=== PATIENT | male | born 1990 | race Caucasian/White ===

== ENCOUNTER 2019-05-15 01:36 | Emergency (ER) | payer SELFPAY ==
[2019-05-15 02:03] VITALS: BP 122/60; PULSE 87; RESP 16; TEMP 36.6; O2SAT 98; BMI 17.4
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
--- NOTE | 2019-05-15 04:21 | PC.NURSE ---
Patient dc'd home in stable condition via ambulation refusing wheelchair. Discharge papers given and explained to patient with all questions asked and answered.
--- NOTE | 2019-05-18 10:49 | DCPLANNER ---
solar manager had message to schedule a follow up appointment for patient with general surgery. solar manager called patient to discuss the follow up appointment with patient, onsite case manager called [phone], the number that you have dialed is no longer in service, is the recording that onsite case manager got. solar manager unable to contact patient, and unable to leave a voicemail for patient. solar manager did call [facility], made referral, clinic will try and contact patient about scheduling an appointment.
== END 2019-05-15 04:21 | disposition home or self-care (01) ==
PROVIDERS: Emergency Provider Nurse Practitioner Family
DX: M79.5 Residual foreign body in soft tissue (principal); F17.200 Nicotine dependence, unspecified, uncomplicated
CPT/HCPCS: 73552; 99281; 99282

== ENCOUNTER 2019-07-05 23:16 | Emergency (ER) | payer SELFPAY ==
[2019-07-05 23:22] VITALS: BP 113/80; PULSE 90; RESP 16; TEMP 36.4; O2SAT 100; BMI 15.0
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
[2019-07-06] MEDS: ibuprofen 600 mg Tablet PO (00:51)
[2019-07-06 00:58] VITALS: BP 122/80; PULSE 76; RESP 14; O2SAT 100
== END 2019-07-06 00:58 | disposition home or self-care (01) ==
PROVIDERS: Emergency Provider Physician Assistant
DX: R51 Headache (principal); S01.81XA Laceration without foreign body of other part of head, initial encounter; Y04.2XXA Assault by strike against or bumped into by another person, initial encounter; F17.210 Nicotine dependence, cigarettes, uncomplicated
CPT/HCPCS: 12345; 70450; 99281; 99283

== ENCOUNTER 2019-08-03 08:17 | Emergency (ER) | payer SELFPAY ==
[2019-08-03 08:32] VITALS: BP 131/76; PULSE 88; RESP 16; TEMP 36.6; O2SAT 98; BMI 21.2
--- NOTE | 2019-08-03 08:48 | W.ED.EXTPRO ---
HPI - Extremity Problem General: Chief complaint: Extremity Injury, Lower Stated complaint: right leg pain Time Seen by Provider: 08/03/19 08:33 History of Present Illness: HPI Narrative: Erasto comes in needing a note for work that he missed work today says because his right leg that piece of metal is starting work its way out and is bothering him. Patient did not follow-up with general surgery to get the piece of metal removed MD Complaint: extremity pain Onset (ago): day(s) Pain Consistency: intermittent Location: right and lower extremity Severity scale (1-10): 3 Quality: aching Radiation: none Associated symptoms: Deny chest pain, fever(s) or rash Review of Systems Const: Denies: fever(s), chills or body aches Eyes: Denies: change in vision or blurry vision ENMT: Denies: throat pain or nasal congestion Card: Denies: chest pain or dyspnea on exertion Resp: Denies: dyspnea, productive cough or non-productive cough GI: Denies: abdominal pain, nausea or vomiting : Denies: difficulty urinating Musc: Denies: extremity pain Skin/Breast: Reports: other (Has piece of metal in his right thigh that is possibly migrating out); Denies: rash Neuro: Denies: headache(s) Psych: Denies: anxiety or depression James/Lymph: Denies: easy bruising PFSH ED PFSH: Social History Smoking and tobacco status: current every day smoker Physical Exam Const: COMMON NORMALS: no acute distress, average body habitus and patient oriented x3 HENMT: COMMON NORMALS: normocephalic HEAD & SCALP: normal to inspection and normocephalic FACE & SINUS: normal facial exam Eye: COMMON NORMALS: conjunctivae normal GENERAL EYE: appearance normal, both eyes and all related structures CONJUNCTIVA: Yes conjunctivae normal Neck/C-Spine: COMMON NORMALS: no JVD Chest: COMMONS NORMALS: normal inspection of the chest Resp: COMMON NORMALS: normal respiratory effort and clear to auscultation bilaterally AUSCULTATION: clear to auscultation bilaterally Cardio: COMMON NORMALS: no JVD, regular rate and regular rhythm RATE: regular rate RHYTHM: regular rhythm GI: COMMON NORMALS: Normal to inspection, nondistended, normoactive bowel sounds present Extremity: COMMON NORMALS: normal to inspection and full ROM RIGHT LOWER EXTREMITY: Yes upper leg (Has a small area of erythema/scab right upper thigh where a piece of metal is possibly underlying the skin that is tender) Neuro: COMMON NORMALS: patient oriented x3 Course Vital Signs: Vital signs: Vital Signs Temperature 97.8 F 08/03/19 08:32 Pulse Rate 88 08/03/19 08:32 Respiratory Rate 16 08/03/19 08:32 Blood Pressure 131/76 08/03/19 08:32 Pulse Oximetry 98 08/03/19 08:32 Discharge Plan Discharge Prescriptions: No Action No Known Home Medications RF: 0 tramadol 50 mg tablet 50 mg PO Q6H PRN (Reason: pain) Qty: 14 RF: 0 Coding Level of Care Code ED Coffee Shop Manager for Sophie Jones
[2019-08-03 09:06] VITALS: BP 124/74; PULSE 82; RESP 18; O2SAT 98
--- NOTE | 2019-08-04 13:08 | DCPLANNER ---
industrial hygiene manager had message to schedule a follow up appointment for patient with general surgery. industrial hygiene manager called [facility], spoke with Kelsi, a follow up appointment was scheduled for Monday, August 05, [address] at 4:[address] Zhong. Clinic will call patient with appointment information.
--- NOTE | 2019-08-14 13:49 | DCPLANNER ---
Patient did attend outpatient appointment with [facility].
== END 2019-08-03 09:08 | disposition home or self-care (01) ==
LOC: ER 09:05
PROVIDERS: Emergency Provider Nurse Practitioner Family
DX: M79.604 Pain in right leg (principal); F17.210 Nicotine dependence, cigarettes, uncomplicated
CPT/HCPCS: 12345; 99281; 99282

== ENCOUNTER → 2020-01-01 15:29 | Outpatient (BNVA) | payer OTHER, SELFPAY | PROVIDERS: Visit Provider Nurse Practitioner Family | DX: Z11.59 Encounter for screening for other viral diseases (principal) | CPT/HCPCS: 87635 ==

== ENCOUNTER 2020-08-12 20:11 | Emergency (ER) | payer SELFPAY ==
[2020-08-12 20:15] VITALS: BP 131/78; PULSE 101; RESP 18; TEMP 36.6; O2SAT 98; BMI 17.7
--- NOTE | 2020-08-12 20:29 | W.ED.MALEGU ---
HPI - Male Genitourinary General: Chief complaint: Urogenital-Male Stated complaint: poss std Time Seen by Provider: 08/12/20 20:13 History of Present Illness: HPI Narrative: Patient complains of burning with urination yellow discharge said it feels like knives in his penis. Patient has a history of gonorrhea infection. Patient says he obtained this recent infection from his and he knows he has gonorrhea because the symptoms had before. MD Complaint: dysuria Onset (ago): day(s) Duration: constant and progressively worsening Location: penis Associated symptoms: Reports no associated symptoms and dysuria; Deny nausea or vomiting Review of Systems Const: Denies: fever(s), chills or body aches Eyes: Denies: change in vision or blurry vision ENMT: Denies: throat pain or nasal congestion Card: Denies: chest pain or dyspnea on exertion Resp: Denies: dyspnea, productive cough or non-productive cough GI: Denies: abdominal pain, nausea or vomiting : Reports: dysuria; Denies: difficulty urinating Musc: Denies: extremity pain Skin/Breast: Denies: rash Neuro: Denies: headache(s) Psych: Denies: anxiety or depression James/Lymph: Denies: easy bruising PFS ED PFSH: Medical History (Updated 08/12/20 @ 21:15 by KHUSHBOO Peters) Foreign body of leg Family History (System 01/05/20 @ 15:18 by Jesica Lindsay) Denies family history of Anesthesia complication Bleeding disorder Social History (System 01/05/20 @ 15:18 by Jesica Lindsay) Smoking and tobacco status: current every day smoker Physical Exam Const: COMMON NORMALS: no acute distress GI: COMMON NORMALS: Normal to inspection, nondistended, normoactive bowel sounds present Psych: COMMON NORMALS: mental status grossly normal Course Vital Signs: Vital signs: Vital Signs Temperature 97.9 F 08/12/20 20:15 Pulse Rate 101 H 08/12/20 20:15 Respiratory Rate 18 08/12/20 20:15 Blood Pressure 131/78 08/12/20 20:15 Pulse Oximetry 98 08/12/20 20:15 MDM - Male MDM Narrative: Medical decision making narrative: Patient with history gonorrhea with positive signs and symptoms now treated as such. Follow-up with no significant provement. Discharge Plan Discharge Patient Disposition: Home Clinical Impression: Acute gonococcal infection of lower genitourinary tract Condition: Stable Prescriptions: No Action No Known Home Medications RF: 0 Discharge Orders: Discharge ED (Routine); Ordered 08/12/20 Ordered By: Syed Johnson Discharge Diet: Usual diet Discharge Activity: Resume usual activity Patient Instructions: Gonococcal Urethritis (ED) Activity Restrictions/Additional Instructions: If symptoms recur or no improvement follow-up your primary care provider the health department locally. Avoid having intercourse with people that have sexually transmitted diseases. Coding Level of Care Code ED [employer]oples[employer] Administrator for Sophie Fwd Exam Expanded Problem Focused
[2020-08-12] MEDS: azithromycin 250 mg Tablet 2000 MG PO (20:42)
== END 2020-08-12 22:06 | disposition home or self-care (01) ==
PROVIDERS: Emergency Provider Nurse Practitioner Family
DX: A54.00 Gonococcal infection of lower genitourinary tract, unspecified (principal); F17.210 Nicotine dependence, cigarettes, uncomplicated
CPT/HCPCS: 87491; 87591; 96365; 99283; J1580; Q0144